=== PATIENT | female | born 2000 | race Caucasian/White ===

== ENCOUNTER 2021-11-08 06:15 | Emergency (ER) | payer OTHER ==
[2021-11-08] MEDS ORDERED: SODIUM CHLORIDE 1,000 ML IV ONE (06:32)
[2021-11-08] MEDS ORDERED: morphine CARPU-JECT 4 MG/1 ML DISP.SYRIN IVPUSH ONE (06:32)
[2021-11-08] MEDS ORDERED: morphine SULFATE 4 MG/ML VIAL ONE (06:43)
[2021-11-08 07:24] VITALS: RESP 18; BMI 25.2
[2021-11-08 07:26] VITALS: BP 121/72; PULSE 102
[2021-11-08 08:20] LABS: EPITHELIAL CELLS MODERATE /hpf
[2021-11-08] MEDS ORDERED: ACETAMINOPHEN INJECTION 100 ML IVPB ONE (08:29)
[2021-11-08] MEDS ORDERED: ACETAMINOPHEN 1000 MG/100 ML BAG IVPB ONE (08:29)
[2021-11-08 08:52] VITALS: TEMP 100.7
[2021-11-08 09:28] LABS: ALBUMIN 3.9 g/dl (3.4-5.0); BILIRUBIN,TOTAL 1.1 mg/dl (0.2-1); CALCIUM 8.7 mg/dl (8.5-10); CREATININE 0.7 mg/dl (0.55-1.3); TOT PROT 6.8 g/dl (6.4-8.2)
[2021-11-08] MEDS ORDERED: CEFTRIAXONE 1 GM in DEXTROSE 5%-WATER - 100 ML IVPB ONE (09:33)
[2021-11-08] MEDS ORDERED: cefTRIAXone SODIUM 1 GM VIAL ONE (09:46)
[2021-11-08 09:48] LABS: HEMATOCRIT 41.4 % (32.4-45.2); HEMOGLOBIN 14.5 G/dL (10.7-15.3); MCH 33.1 pg (25.7-33.7); MEAN CELL VOLUME 94.7 fl (80-96); PLATELET COUNT 159.2 10^3/uL (134-434); RBC 4.37 10^6/uL (3.60-5.2); RDW 13.1 % (11.6-15.6); WHITE BLOOD COUNT 13.5 10^3/uL (4.0-10.8)
[2021-11-08 12:48] LABS: PLATELET ESTIMATE ADEQUATE
== END 2021-11-08 10:52 | disposition home or self-care (01) ==
LOC: FER 06:15
PROC: 3E0333Z Introduction of Anti-inflammatory into Peripheral Vein, Percutaneous Approach (ICD-10-PCS; principal; 2021-11-08)
PROC: 3E03329 Introduction of Other Anti-infective into Peripheral Vein, Percutaneous Approach (ICD-10-PCS; 2021-11-08)
PROC: 3E033NZ Introduction of Analgesics, Hypnotics, Sedatives into Peripheral Vein, Percutaneous Approach (ICD-10-PCS; 2021-11-08)
PROC: 3E0337Z Introduction of Electrolytic and Water Balance Substance into Peripheral Vein, Percutaneous Approach (ICD-10-PCS; 2021-11-08)
DX: N10 Acute pyelonephritis (principal)
CPT/HCPCS: 0241U-QW; 36415; 74176-TC; 80053; 81003; 81015; 81025; 83605; 84703; 85027; 87040; 87086; 87186; 87491; 87591; 99284-25